=== PATIENT | female | born 1935 ===

== ENCOUNTER 2020-05-07 11:58 | Emergency (ER) | payer OTHER ==
[~2020-05-07] VITALS: Ht 154.9 cm; Wt 77.1 kg
[~2020-05-07 11:58] MED LIST: ALPRAZOLAM OD0.25 MG; AMLODIPINE-OLM1 EACH PO; BUSPIRONE HCL7.5 MG PO; CARVEDILOL ER40 MG PO; CARVEDILOL6.25 MG; COREG CR10 MG; COUMADIN2 MG PO; COUMADIN2.5 MG; COZAAR100 MG PO; DEPAKOTE ER250 MG PO; DIOVAN320 MG; GLUCOPHAGE XR500 MG; JANTOVEN2 MG; LEVAQUIN500 MG PO; MULTIVITAMIN1 TAB; NORVASC5 MG; PANADOL EXTRA500 MG; PRILOSEC20 MG; PROTONIX20 MG; RANITIDINE HCL150 M1; TESSALON PERLE100 M1 PO; TUSSI PRES-B L120 M1 PO; ULTRAM50 MG PO; XANAX0.25 MG; ZANTAC150 MG; ZITHROMAX500 MG PO; ZOCOR40 MG; ZOLOFT100 MG PO; ZOLOFT25 MG; [UNRECOGNIZED DRUG - OTHER] OT
== END 2020-05-07 15:42 | disposition home or self-care (01) ==
LOC: ER 11:58
DX: G40.802 Other epilepsy, not intractable, without status epilepticus (principal); Z03.818 Encounter for observation for suspected exposure to other biological agents ruled out; R53.81 Other malaise

== ENCOUNTER 2020-09-12 09:30 | Emergency (ER) | payer OTHER ==
[~2020-09-12] VITALS: Ht 157.5 cm; Wt 79.4 kg
[2020-09-12] MEDS ORDERED: COZAAR25 MG PO (09:47)
[2020-09-12] MEDS ORDERED: RISPERDAL1 MG PO (09:48)
[2020-09-12] MEDS ORDERED: LIPITOR40 MG PO (09:48)
[2020-09-12] MEDS ORDERED: DEPAKOTE ER250 MG PO (09:48)
[2020-09-12] MEDS ORDERED: PROTONIX20 MG PO (09:48)
[2020-09-12] MEDS ORDERED: NORVASC5 MG PO (09:48)
[2020-09-12] MEDS ORDERED: CARVEDILOL12.5 MG PO (09:49)
[2020-09-12] MEDS ORDERED: HYDRODIURIL12.5 MG PO (09:49)
[2020-09-12] MEDS ORDERED: XANAX1 MG PO (09:50)
[2020-09-12] MEDS ORDERED: WARFARIN SODIUM1 MG PO (09:50)
[2020-09-12] MEDS ORDERED: BUSPIRONE HCL5 MG PO (09:51)
[2020-09-12] MEDS ORDERED: ZOLOFT25 MG PO (09:52)
== END 2020-09-12 14:20 | disposition home or self-care (01) ==
LOC: ER 09:30
DX: S70.01XA Contusion of right hip, initial encounter (principal); M54.5 Low back pain; W18.39XA Other fall on same level, initial encounter; Y93.89 Activity, other specified; Y92.018 Other place in single-family (private) house as the place of occurrence of the external cause; Y99.8 Other external cause status

== ENCOUNTER 2021-03-25 15:54 | Inpatient (IN) | payer OTHER ==
[~2021-03-25] VITALS: Ht 121.9 cm; Wt 5.0 kg
[~2021-03-25 15:54] MED LIST changes: +BUSPIRONE HCL5 MG PO; +CARVEDILOL12.5 MG PO; +COZAAR25 MG PO; +HYDRODIURIL12.5 MG PO; +LIPITOR40 MG PO; +NORVASC5 MG PO; +PROTONIX20 MG PO; +RISPERDAL1 MG PO; +WARFARIN SODIUM1 MG PO; +XANAX1 MG PO; +ZOLOFT25 MG PO
== END 2021-03-29 17:07 | disposition home or self-care (01) | DRG 378 ==
LOC: ER 15:54 → MEDJ 03-26 08:53
PROVIDERS: ADMIT Internal Medicine; ATTEND Internal Medicine
PROC: 4A12X4Z Monitoring of Cardiac Electrical Activity, External Approach (ICD-10-PCS; principal; 2021-03-26)
PROC: BW21ZZZ Computerized Tomography (CT Scan) of Abdomen and Pelvis (ICD-10-PCS; 2021-03-26)
DX: K57.33 Diverticulitis of large intestine without perforation or abscess with bleeding (principal); I48.20 Chronic atrial fibrillation, unspecified; K92.1 Melena; Z20.822 Contact with and (suspected) exposure to COVID-19; E86.0 Dehydration; E87.6 Hypokalemia; I10 Essential (primary) hypertension